=== PATIENT | male | born 1990 | race Caucasian/White ===

== ENCOUNTER 2022-06-24 18:05 | Emergency (ER) | payer BC ==
[~2022-06-24] VITALS: Ht 188 cm; Wt 68.0 kg
[2022-06-24] MEDS ORDERED: Cleocin HCl300 MG PO (21:15)
== END 2022-06-24 22:31 | disposition home or self-care (01) ==
LOC: ER 18:05
DX: K04.7 Periapical abscess without sinus (principal); K04.01 Reversible pulpitis; J45.909 Unspecified asthma, uncomplicated; Z88.6 Allergy status to analgesic agent; Z87.891 Personal history of nicotine dependence
CPT/HCPCS: A9270

== ENCOUNTER 2023-06-21 02:06 | Emergency (ER) | payer SELFPAY ==
[~2023-06-21] VITALS: Ht 182.9 cm; Wt 72.6 kg
[~2023-06-21 02:06] MED LIST: Cleocin HCl300 MG PO
[2023-06-21 02:39] VITALS: BP 116/59
[2023-06-21] MEDS ORDERED: Atarax10 MG PO (04:01)
== END 2023-06-21 04:17 | disposition home or self-care (01) ==
LOC: ER 02:06
DX: F41.9 Anxiety disorder, unspecified (principal); R06.00 Dyspnea, unspecified; Z87.891 Personal history of nicotine dependence
CPT/HCPCS: 93005; 93010; 99283-25